=== PATIENT | female | born 1960 | race Two or more races ===

== ENCOUNTER 2024-08-11 22:30 | Emergency (ER) | payer OTHER, MEDICAID ==
[~2024-08-11] VITALS: Ht 154.9 cm; Wt 54.4 kg
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
[2024-08-11 23:56] VITALS: BP 161/60; PULSE 66; RESP 19; TEMP 97.8; O2SAT 98
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
== END 2024-08-12 01:39 | disposition home or self-care (01) ==
LOC: ER 22:30 → EDBD 22:30 → ER 08-12 01:38
DX: S13.4XXA Sprain of ligaments of cervical spine, initial encounter (principal); S33.5XXA Sprain of ligaments of lumbar spine, initial encounter; G44.309 Post-traumatic headache, unspecified, not intractable; Z90.49 Acquired absence of other specified parts of digestive tract; V89.2XXA Person injured in unspecified motor-vehicle accident, traffic, initial encounter; Y93.89 Activity, other specified; Y92.89 Other specified places as the place of occurrence of the external cause; Y99.8 Other external cause status
CPT/HCPCS: 70450; 72125; 72131